=== PATIENT | male | born 1965 | race Hispanic/Latino ===

== ENCOUNTER 2016-10-29 17:44 | Emergency (ER) | payer OTHER ==
[~2016-10-29] VITALS: Ht 175.3 cm; Wt 127.7 kg
[~2016-10-29 17:44] MED LIST: AUGMENTIN500TAB PO; BACTRIM DS1 TAB PO; BACTROBAN2 % EX; CEPHALEXIN500 MG PO; CLINDAMYCIN300 MG PO; FLEXERIL OR; GLIPIZIDE ER2.5 MG PO; LISINOPRIL5 MG PO; METFORMIN500 MG PO; NAPROSYN500 MG PO; NO; TANZEUM30 MG SC; ULTRAM50 MG OR
[2016-10-29 20:35] VITALS: BP 130/78
== END 2016-10-29 20:35 | disposition home or self-care (01) | DRG 605 ==
LOC: ED 17:44
DX: S20.312A Abrasion of left front wall of thorax, initial encounter (principal); I10 Essential (primary) hypertension; E11.9 Type 2 diabetes mellitus without complications; W31.89XA Contact with other specified machinery, initial encounter

== ENCOUNTER 2017-07-15 14:01 | Observation (INO) | payer OTHER ==
[~2017-07-15] VITALS: Ht 175.3 cm; Wt 125.0 kg
--- NOTE | 2017-07-15 14:09 | NUR ---
AMBULATORY TO ER ROOM 14, TO BED
[2017-07-15 14:30] LABS: HEMATOCRIT 48.2 % (39.0-50.0); HEMOGLOBIN 16.9 g/dl (14.0-18.0); IMMATURE GRANULOCYTES 0.6 % (0.0-1.0); MEAN CORPUSCULAR HGB 30.5 pG CALC (26.0-32.0); MEAN CORPUSCULAR HGB CONC 35.1 g/L CALC (32.0-36.0); RED BLOOD COUNT 5.54 mill/uL (4.70-6.10); RED CELL DISTRI WIDTH 13.4 % (11.5-15.5)
[2017-07-15 14:37] LABS: URINE BILIRUBIN - DIPSTICK SMALL (NEGATIVE); URINE BLOOD DIPSTICK NEGATIVE (NEGATIVE); URINE CLARITY SL CLOUDY; URINE COLOR DK. YELLOW; URINE GLUCOSE - DIPSTICK 100 mg/dL (NEGATIVE); URINE KETONE 15 mg/dL (NEGATIVE); URINE LEUK ESTERASE NEGATIVE (NEGATIVE); URINE NITRITE - DIPSTICK NEGATIVE (Negative); URINE PROTEIN - DIPSTICK 30 mg/dL (NEG-TRACE); URINE SPECIFIC GRAVITY >=1.030; URINE UROBILINOGEN - DIPSTICK 0.2 E.U./dL (0.2)
[2017-07-15 14:38] LABS: URINE EPITHELIAL CELLS FEW EPI/hpf (0-FEW); URINE MUCUS MODERATE hpf (NONE-FEW)
[2017-07-15 14:42] LABS: ALBUMIN 4.5 g/dL (3.2-5.0); ALKALINE PHOSPHATASE 129 u/l (38-126); ANION GAP 21 (6-22 (CALC)); BILIRUBIN, TOTAL 1.2 mg/dL (0.0-1.4); BUN 24 mg/dL (9-20); BUN/CREATININE RATIO 16 (12-20 (CALC)); CARBON DIOXIDE 23 mmol/l (22-30); CHLORIDE 100 mmol/l (95-108); CPK 391 u/l (52-200); CREATININE 1.5 mg/dL (0.7-1.3); GFR 49 ML/MIN (>=60 (CALC)); GFR FOR AFR.AMER. 60 ML/MIN (>=60 (CALC)); LIPASE 108 u/l (23-300); POTASSIUM 4.9 mmol/l (3.5-5.1); SGPT/ALT 159 u/l (21-72); SODIUM 139 mmol/l (137-146)
[2017-07-15 14:43] LABS: SGOT/AST 128 u/l (17-59); TOTAL PROTEIN 9.2 g/dL (6.3-8.2)
--- NOTE | 2017-07-15 14:45 | NUR ---
PT WITH IV ESTABLISHED, BLOOD DRAWN, PROVIDED WITH NS 2 LITERS. PT WAS CRAMPING UP WHEN HE MOVED.
--- NOTE | 2017-07-15 15:58 | NUR ---
LITERS 3 AND 4 RUNNING. PT AWARE OF PENDING ADMISSION. REPORT PROVIDED TO NANCY, TAKEN TO ROOM BY
--- NOTE | 2017-07-15 16:04 | NUR ---
PT CAME FROM ER VIA WHEELCHAIR BY MARII URBINA. STAND BY ASSIST TO BED. SAFETY PRECAUTIONS REINFORCED AND CALL LIGHT IN REACH.
--- NOTE | 2017-07-15 16:21 | NUR ---
PT IS SITTING IN THE SIDE OF THE BED. ASSESSMENT DONE TELE IN PLACE. RESPS EVEN AND UNLABORED. PT DENIES PAIN AT THIS TIME. #18 LAC AND #20 RH THAT APPEARS HEALTHY. IN ROOM AND CALL LIGHT IN REACH.
[2017-07-15 16:22] VITALS: BP 132/90
[2017-07-15 19:25] VITALS: BP 134/88
--- NOTE | 2017-07-15 19:30 | NUR ---
PATIENT RESTING IN BED WATCHING TV WITH AT BEDSIDE. PATIENT WITH NO COMPLAINTS AT THIS TIME. STATES THAT THE CRAMPING HAS STOPPED. IV SITE TO RIGHT HAND AND LEFT AC BOTH HEP LOCKED AND APPEAR HEALTHY AT THIS TIME. PATIENT VOIDING QS CLEAR YELLOW URINE IN URINAL. PATIENT STATES THAT HE HAD BM TODAY-NORMAL. ABD IS DISTENDED BUT SOFT WITH BS+. LUNGS ARE CLEAR. NO PEDAL EDEMA NOTED AND PEDAL PULSES ARE PALPABLE. CALL LIGHT IN REACH. WILL CONT TO MONITOR.
--- NOTE | 2017-07-15 21:00 | NUR ---
[id number] WITH 2UNITS OF NOVALOG PER [employer]. HS SNACK PROVIDED. NO COMPLAINTS AT THIS TIME. CALL LIGHT IN REACH. WILL CONT TO MONITOR.
--- NOTE | 2017-07-15 21:53 | NUR ---
PATIENT RESTING IN BED WATCHING TV WITH AT BEDSIDE. NO COMPLAINTS AT THIS TIME. IVF NS HUNG ORDERED TO RIGHT HAND IV SITE AT 125CC/HR. SITE IS HEALTHY WITH GOOD BLOOD RETURN. CALL LIGHT IN REACH. W3ILL CONT TO MONITOR.
--- NOTE | 2017-07-16 | NUR ---
APPEARS SLEEPING AT THIS TIME. CALL LIGHT IN REACH. IVF PATENT AND INFUSING AT 125CC/HR. CALL LIGHT IN REACH. WILL CONT TO MONITOR.
[2017-07-16 00:05] VITALS: BP 153/97
--- NOTE | 2017-07-16 04:00 | NUR ---
PATIENT APPEARS SLEEPING AT THIS TIME WITH RESTING AT BEDSIDE. IVF NS PATENT AND INFUSING AT 125CC/HR. CALL LIGHT IN REACH. WILL CONT TO MONITOR.
[2017-07-16 04:30] VITALS: BP 135/94
--- NOTE | 2017-07-16 04:45 | NUR ---
PATIENT C/O THROBBING HEADACHE AT THIS TIME-MEDICATED WITH TYLENOL 650MG PO. RESTING ON COT PROVOIDED. VOIDING QS CLEAR YELLOW URINE. CALL LIGHT IN REACH. WILL CONT TO MONITOR.
[2017-07-16 05:13] LABS: MEAN CELL VOLUME 89.2 fL CALC (80.0-100.0); MEAN CORPUSCULAR HGB 31.2 pG CALC (26.0-32.0); RED BLOOD COUNT 4.45 mill/uL (4.70-6.10); RED CELL DISTRI WIDTH 13.4 % (11.5-15.5)
[2017-07-16 05:20] LABS: ANION GAP 11 (6-22 (CALC)); BUN 14 mg/dL (9-20); BUN/CREATININE RATIO 20 (12-20 (CALC)); CARBON DIOXIDE 22 mmol/l (22-30); CHLORIDE 108 mmol/l (95-108); CREATININE 0.7 mg/dL (0.7-1.3); GFR > 60 ML/MIN (>=60 (CALC)); GFR FOR AFR.AMER. > 60 ML/MIN (>=60 (CALC)); POTASSIUM 4.6 mmol/l (3.5-5.1); SODIUM 137 mmol/l (137-146)
[2017-07-16 06:00] LABS: HEMATOCRIT 39.7 % (39.0-50.0); HEMOGLOBIN 13.9 g/dl (14.0-18.0)
--- NOTE | 2017-07-16 07:00 | NUR ---
SHIFT CHANGE REPORT MCKENNA, PT AWAKE ALERT AND ORIENTED, CO THROBBING HEADACHE @ 11/16 STATED HE HAD TYLENOL EARLIER WHICH HAS NOT RELIEVED PAIN, DR MORALES NOTIFIED AND GAVE ORDERS, COOL COMPRESS ALSO APPLIED AND PT STATED HE HAD RELIEF FROM ICE PACK. TELE MONITOR IN PLACE, CALL BLISS IN REACH, SPOUSE AT BEDSIDE.
[2017-07-16 07:42] LABS: BILIRUBIN, TOTAL 0.6 mg/dL (0.0-1.4)
[2017-07-16 07:46] LABS: ALBUMIN 3.1 g/dL (3.2-5.0); TOTAL PROTEIN 6.7 g/dL (6.3-8.2)
[2017-07-16 08:04] VITALS: BP 135/85
--- NOTE | 2017-07-16 12:56 | NUR ---
Discharge instructions given. Patient verbalizes understanding of same. Discharged in good condition via Ambulatory to Home with spouse. All belongings sent with pt. PT REQUESTED TO AMBULATE OFF UNIT
== END 2017-07-16 12:35 | disposition home or self-care (01) | DRG 558 ==
LOC: ED 14:01 → ED-I 15:11 → ED 15:46 → MS2 15:47
PROVIDERS: Family Medicine; ADMIT Internal Medicine; ATTEND Internal Medicine
DX: M62.82 Rhabdomyolysis (principal); N17.9 Acute kidney failure, unspecified; E86.0 Dehydration; D69.6 Thrombocytopenia, unspecified; R16.1 Splenomegaly, not elsewhere classified; E11.9 Type 2 diabetes mellitus without complications; I10 Essential (primary) hypertension; Z79.4 Long term (current) use of insulin
CPT/HCPCS: G0378

== ENCOUNTER → 2018-04-05 | Outpatient (REF) | payer OTHER ==
[2018-04-05 17:44] LABS: ALBUMIN 4.3 g/dL (3.2-5.0); ALKALINE PHOSPHATASE 123 u/l (38-126); ANION GAP 15 (6-22 (CALC)); BUN 19 mg/dL (9-20); BUN/CREATININE RATIO 25 (12-20 (CALC)); CARBON DIOXIDE 22 mmol/l (22-30); CHLORIDE 103 mmol/l (95-108); CREATININE 0.8 mg/dL (0.7-1.3); GFR > 60 ML/MIN (>=60 (CALC)); GFR FOR AFR.AMER. > 60 ML/MIN (>=60 (CALC)); POTASSIUM 4.1 mmol/l (3.5-5.1); SGOT/AST 95 u/l (17-59); SODIUM 136 mmol/l (137-146)
== END | disposition home or self-care (01) | DRG 639 ==
LOC: LAB 15:56
PROVIDERS: ATTEND Internal Medicine Endocrinology, Diabetes & Metabolism
DX: E11.9 Type 2 diabetes mellitus without complications (principal); I10 Essential (primary) hypertension

== ENCOUNTER 2018-09-20 19:27 | Emergency (ER) | payer OTHER ==
[~2018-09-20] VITALS: Ht 175.3 cm; Wt 118.0 kg
[2018-09-20 20:59] LABS: HEMATOCRIT 45.8 % (39.0-50.0); IMMATURE GRANULOCYTES 0.3 % (0.0-5.0); MEAN CELL VOLUME 91.4 fL CALC (80.0-100.0); MEAN CORPUSCULAR HGB 31.9 pG CALC (26.0-32.0); MEAN CORPUSCULAR HGB CONC 34.9 g/L CALC (32.0-36.0); NEUT# 3.69 thou/uL (1.82-7.42); RED BLOOD COUNT 5.01 mill/uL (4.70-6.10); RED CELL DISTRI WIDTH 13.1 % (11.5-15.5)
[2018-09-20 21:06] LABS: URINE BILIRUBIN - DIPSTICK NEGATIVE (NEGATIVE); URINE BLOOD DIPSTICK NEGATIVE (NEGATIVE); URINE COLOR YELLOW; URINE GLUCOSE - DIPSTICK >=1000 mg/dL (NEGATIVE); URINE KETONE 15 mg/dL (NEGATIVE); URINE LEUK ESTERASE NEGATIVE (NEGATIVE); URINE NITRITE - DIPSTICK NEGATIVE (Negative); URINE PROTEIN - DIPSTICK NEGATIVE (NEG-TRACE); URINE SPECIFIC GRAVITY 1.025; URINE UROBILINOGEN - DIPSTICK 0.2 E.U./dL (0.2)
[2018-09-20 21:11] LABS: BARBITURATES NEGATIVE (NEGATIVE); COCAINE NEGATIVE (NEGATIVE); METHADONE NEGATIVE (NEGATIVE); TETRAHYDROCANNABIONOL POSITIVE (NEGATIVE); TRICYLIC ANTIDEPRESSANTS NEGATIVE (NEGATIVE)
[2018-09-20 21:12] LABS: OXCYCODONE NEGATIVE (NEGATIVE)
[2018-09-20] MEDS ORDERED: TIZANIDINE HCL2 M1 PO (21:17)
[2018-09-20] MEDS ORDERED: OZEMPIC2 MG/1.5 M (21:17)
[2018-09-20 21:37] LABS: ALBUMIN 4.4 g/dL (3.2-5.0); ALKALINE PHOSPHATASE 112 u/l (38-126); ANION GAP 16 (6-22 (CALC)); BILIRUBIN, TOTAL 1.7 mg/dL (0.0-1.4); BUN 20 mg/dL (9-20); BUN/CREATININE RATIO 29 (12-20 (CALC)); CARBON DIOXIDE 21 mmol/l (22-30); CHLORIDE 102 mmol/l (95-108); CPK 187 u/l (52-200); CREATININE 0.7 mg/dL (0.7-1.3); GFR > 60 ML/MIN (>=60 (CALC)); GFR FOR AFR.AMER. > 60 ML/MIN (>=60 (CALC)); MAGNESIUM 1.8 mg/dL (1.6-2.3); POTASSIUM 4.6 mmol/l (3.5-5.1); SGOT/AST 121 u/l (17-59); SODIUM 134 mmol/l (137-146); TOTAL PROTEIN 8.2 g/dL (6.3-8.2)
[2018-09-20 21:52] LABS: MYOGLOBIN 61 ng/mL (0 - 121)
[2018-09-20 22:10] LABS: TSH, 3RD GENERATION 1.26 uIU/mL (0.47 - 4.68)
[2018-09-21 00:14] VITALS: BP 125/78
== END 2018-09-21 00:12 | disposition home or self-care (01) | DRG 948 ==
LOC: ED 19:27
PROVIDERS: Family Medicine
DX: R53.1 Weakness (principal); E11.9 Type 2 diabetes mellitus without complications; K76.0 Fatty (change of) liver, not elsewhere classified; R06.02 Shortness of breath; R11.2 Nausea with vomiting, unspecified; D69.6 Thrombocytopenia, unspecified; E11.42 Type 2 diabetes mellitus with diabetic polyneuropathy; E55.9 Vitamin D deficiency, unspecified; I10 Essential (primary) hypertension; I80.01 Phlebitis and thrombophlebitis of superficial vessels of right lower extremity; M79.10 Myalgia, unspecified site; R16.0 Hepatomegaly, not elsewhere classified; R16.2 Hepatomegaly with splenomegaly, not elsewhere classified; R25.2 Cramp and spasm; R53.83 Other fatigue; R74.8 Abnormal levels of other serum enzymes; R30.0 Dysuria

== ENCOUNTER 2019-01-17 | Day surgery (SDC) | payer OTHER ==
[~2019-01-17] MED LIST changes: +GLIPIZIDE10 M3 PO; +GLIPIZIDE5 MG PO; +OZEMPIC2 MG/1.5 M; +TIZANIDINE HCL2 M1 PO
[2019-07-10] MEDS ORDERED: NEURONTIN600 MG PO (10:07)
[2019-08-07] MEDS ORDERED: LYRICA100 MG PO (10:32)
== END 2019-01-17 09:00 | disposition home or self-care (01) | DRG 552 ==
DX: M54.17 Radiculopathy, lumbosacral region (principal)
CPT/HCPCS: Q9967

== ENCOUNTER 2019-02-14 | Day surgery (SDC) | payer OTHER ==
[2019-07-10] MEDS ORDERED: NEURONTIN600 MG PO (10:07)
[2019-08-07] MEDS ORDERED: LYRICA100 MG PO (10:32)
== END 2019-02-14 08:25 | disposition home or self-care (01) | DRG 552 ==
DX: M54.16 Radiculopathy, lumbar region (principal)
CPT/HCPCS: Q9967

== ENCOUNTER 2019-02-28 | Day surgery (SDC) | payer OTHER ==
[2019-07-10] MEDS ORDERED: NEURONTIN600 MG PO (10:07)
[2019-08-07] MEDS ORDERED: LYRICA100 MG PO (10:32)
== END 2019-02-28 08:10 | disposition home or self-care (01) | DRG 552 ==
DX: M54.17 Radiculopathy, lumbosacral region (principal); M79.662 Pain in left lower leg
CPT/HCPCS: Q9967

== ENCOUNTER 2021-05-27 20:28 | Emergency (ER) | payer OTHER ==
[~2021-05-27] VITALS: Ht 175.3 cm; Wt 117.0 kg
[~2021-05-27 20:28] MED LIST changes: +LYRICA100 MG PO; +NEURONTIN600 MG PO; +TRULICITY0.75 MG/0. SC
[2021-05-27 20:37] VITALS: BP 125/77
[2021-05-27 21:01] VITALS: BP 107/68
[2021-05-27 21:03] LABS: HEMATOCRIT 43.2 % (39.0-50.0); HEMOGLOBIN 15.1 g/dl (14.0-18.0); IMMATURE GRANULOCYTES 0.3 % (0.0-5.0); MEAN CELL VOLUME 89.6 fL CALC (80.0-100.0); MEAN CORPUSCULAR HGB 31.3 pG CALC (26.0-32.0); NEUT# 2.14 thou/uL (1.82-7.42); RED BLOOD COUNT 4.82 mill/uL (4.70-6.10); RED CELL DISTRI WIDTH 13.3 % (11.5-15.5)
[2021-05-27 21:21] LABS: ALBUMIN 3.8 g/dL (3.2-5.0); BILIRUBIN, TOTAL 1.2 mg/dL (0.0-1.4); BUN 15 mg/dL (9-20); BUN/CREATININE RATIO 26 (12-20 (CALC)); CARBON DIOXIDE 22 mmol/l (22-30); CHLORIDE 100 mmol/l (95-108); CREATININE 0.6 mg/dL (0.7-1.3); GFR > 60 ML/MIN (>=60 (CALC)); GFR FOR AFR.AMER. > 60 ML/MIN (>=60 (CALC)); POTASSIUM 4.2 mmol/l (3.5-5.1); SGOT/AST 62 u/l (17-59); TOTAL PROTEIN 7.5 g/dL (6.3-8.2)
[2021-05-27 21:25] LABS: ALKALINE PHOSPHATASE 186 u/l (38-126); ANION GAP 11 (6-22 (CALC)); SODIUM 129 mmol/l (137-146)
[2021-05-27 21:31] VITALS: BP 125/79
[2021-05-27] MEDS ORDERED: LEVEMIR100 UNIT SC (21:46)
[2021-05-27 22:00] VITALS: BP 123/76
[2021-05-27 22:03] VITALS: BP 123/76
== END 2021-05-27 22:15 | disposition home or self-care (01) | DRG 639 ==
LOC: ED 20:28
PROVIDERS: Family Medicine
DX: E11.65 Type 2 diabetes mellitus with hyperglycemia (principal); Z79.4 Long term (current) use of insulin; Z79.84 Long term (current) use of oral hypoglycemic drugs

== ENCOUNTER 2021-12-30 19:00 | Emergency (ER) | payer OTHER ==
[~2021-12-30] VITALS: Ht 175.3 cm; Wt 119.5 kg
[2021-12-30] VITALS (7 sets, daily range): BP systolic 97–114; BP diastolic 56–73
[~2021-12-30 19:00] MED LIST changes: +ASPIRIN 81 LOW81 MG; +LEVEMIR100 UNIT SC; +TRULICITY0.75 MG/0.
[2021-12-30] MEDS ORDERED: LISINOPRIL5 MG PO (19:48)
[2021-12-30 21:21] LABS: IMMATURE GRANULOCYTES 0.4 % (0.0-5.0); MEAN CELL VOLUME 90.7 fL CALC (80.0-100.0); MEAN CORPUSCULAR HGB 32.4 pG CALC (26.0-32.0); MEAN CORPUSCULAR HGB CONC 35.7 g/dL CAL (32.0-36.0); NEUT# 9.93 thou/uL (1.82-7.42); RED BLOOD COUNT 3.98 mill/uL (4.70-6.10); RED CELL DISTRI WIDTH 13.7 % (11.5-15.5)
[2021-12-30 21:22] LABS: HEMATOCRIT 36.1 % (39.0-50.0); HEMOGLOBIN 12.9 g/dl (14.0-18.0)
[2021-12-30 21:23] LABS: ALBUMIN 3.7 g/dL (3.2-5.0); AMYLASE 80 u/l (30-110); CARBON DIOXIDE 21 mmol/l (22-30); CHLORIDE 100 mmol/l (95-108); GFR FOR AFR.AMER. > 60 ML/MIN (>=60 (CALC)); GFR OTHER RACES > 60 ML/MIN (>=60 (CALC)); LIPASE 67 u/l (23-300); SGOT/AST 56 u/l (17-59); SODIUM 130 mmol/l (137-146); TOTAL PROTEIN 6.9 g/dL (6.3-8.2)
[2021-12-30 21:31] LABS: BUN 60 mg/dL (9-20); BUN/CREATININE RATIO 60 (12-20 (CALC))
[2021-12-30 21:32] LABS: ALKALINE PHOSPHATASE 82 u/l (38-126); ANION GAP 15 (6-22 (CALC)); POTASSIUM 5.6 mmol/l (3.5-5.1)
[2021-12-30 21:35] LABS: MYOGLOBIN 112 ng/mL (0 - 121)
[2021-12-30 21:55] LABS: URINE BILIRUBIN - DIPSTICK NEGATIVE (NEGATIVE); URINE BLOOD DIPSTICK NEGATIVE (NEGATIVE); URINE COLOR YELLOW; URINE GLUCOSE - DIPSTICK >=1000 mg/dL (NEGATIVE); URINE KETONE TRACE mg/dL (NEGATIVE); URINE LEUK ESTERASE NEGATIVE (NEGATIVE); URINE PH 5.5 (4.5-8.0); URINE PROTEIN - DIPSTICK NEGATIVE (NEG-TRACE); URINE SPECIFIC GRAVITY 1.015; URINE UROBILINOGEN - DIPSTICK 0.2 E.U./dL (0.2)
[2021-12-30 21:57] LABS: URINE NITRITE - DIPSTICK NEGATIVE (Negative)
[2021-12-30 23:26] LABS: INTERNATIONAL NORMALIZED RATIO 1.3 RATIO (0.7-1.3); PROTHROMBIN TIME 12.7 SECONDS (9.0-12.5)
[2021-12-31] VITALS: BP 114/60
[2021-12-31 00:32] VITALS: BP 114/61
[2021-12-31 01:06] VITALS: BP 114/61
== END 2021-12-31 00:50 | disposition short-term general hospital (02) | DRG 433 ==
LOC: ED 19:00
PROVIDERS: Emergency Medicine
DX: K70.30 Alcoholic cirrhosis of liver without ascites (principal); K76.6 Portal hypertension; K92.0 Hematemesis; F10.20 Alcohol dependence, uncomplicated; R16.1 Splenomegaly, not elsewhere classified; R16.0 Hepatomegaly, not elsewhere classified; E11.65 Type 2 diabetes mellitus with hyperglycemia
CPT/HCPCS: Q9967; S0164